=== PATIENT | female | born 1975 | race Caucasian/White ===

== ENCOUNTER 2023-12-16 15:26 | Observation (INO) | payer OTHER ==
[~2023-12-16 15:26] MED LIST: Iopamidol-370 76% 500 ML MDV (1 ML CHARGE) ONE
[2023-12-16 16:19] LABS: #Basophils 0.06 10x3/uL (0.0-0.2); #Eosinphils Less than 0.03 10x3/uL (0.0-0.7); %Basophils 0.4 % (0.0-1.0); %Eosinophils 0.1 % (0.0-10.0); %Lymphocytes 12.5 % (21.0-51.0); %Monocytes 8.7 % (0.0-10.0); %Neutrophils 76.6 % (42.0-75.0); Hematocrit 44.6 % (36.0-47.0); Hemoglobin 15.2 g/dL (12.0-16.0); Mean Corpuscular HGB CONC 34.1 g/dL (32.0-36.0); Mean Corpuscular Hemoglobin 30.2 pg (27.0-31.0); Mean Corpuscular Volume 88.7 fL (78.0-98.0); Mean Platelet Volume 9.3 fL (7.4-10.4); Platelet Count 579 10x3/uL (130-400); RBC Distribution Width 13.3 % (11.5-14.5); Red Blood Cell (RBC) Count 5.03 mill/uL (4.20-5.40)
[2023-12-16 16:23] LABS: BHCG - Serum Negative (NEGATIVE); Pregs Control Background? CLEAR/WHITE (CLR/WHITE); Pregs Control Bar Appear? YES (CONTROL BAR)
[2023-12-16 16:27] LABS: ALT (SGPT) 17 U/L (8-55); AST (SGOT) 17 U/L (5-34); Albumin 4.3 g/dL (3.5-5.0); Alkaline Phosphatase 110 U/L (40-110); Anion Gap 17 mmol/L (10-20); BUN (Urea Nitrogen) 21 mg/dL (7.0-18.7); Bilirubin, Total 0.8 mg/dL (0.2-1.2); Calc. Creatinine Clearance 0 mL/min (70-130); Calcium 9.8 mg/dL (7.8-10.44); Carbon Dioxide 20 mmol/L (22-29); Chloride 102 mmol/L (98-107); Estimated GFR 65; Globulin 3.9 g/dL (2.4-3.5); Glucose 321 mg/dL (70-105); Potassium 3.6 mmol/L (3.5-5.1); Protein, Total 8.2 g/dL (6.0-8.3); Sodium 135 mmol/L (136-145)
[2023-12-16 18:08] LABS: Bacteria/HPF None Seen HPF (None Seen); Bilirubin Negative (Negative); Blood, Urine 2+ (Negative); CAUTI Indications for Culture Dysuria,urgency,freq; Clarity Turbid (Clear); Glucose, Urine (Dipstick) Greater than 1000 mg/dL (Negative); Ketone, Urine 80 mg/dL (Negative); Leukocyte Negative Leu/uL (Negative); Nitrite Negative (Negative); Protein, Urine (Dipstick) 300 mg/dL (Neg-Trace); Specific Gravity, Urine 1.039 (1.002-1.036)
[2023-12-16 18:11] LABS: Urine Culture Reflex No No
[2023-12-16] MEDS ORDERED: Ketorolac Tromethamine 30 MG (1 mL) VIAL ONE (19:16)
[2023-12-16] MEDS ORDERED: Pantoprazole 40 MG VIAL ONE (20:41)
[2023-12-16] MEDS ORDERED: Pantoprazole 80 MG, Admixture Fee 1 EACH in Sodium Chloride 0.9% 100 ML IVPB SCH (20:45)
[2023-12-16] MEDS ORDERED: Dextrose 50% Abboject 50 ML SYRINGE SLOW IVP PRN (22:06)
[2023-12-16] MEDS ORDERED: Ondansetron PF 4 MG/2 ML Vial IVP PRN (22:06)
[2023-12-16] MEDS ORDERED: Glucagon 1 MG/ML KIT IM PRN (22:06)
[2023-12-16] MEDS ORDERED: Dextrose 5% in Water 1,000 ML IV PRN (22:06)
[2023-12-16] MEDS ORDERED: Insulin Lispro 100 UNIT/ML 10 ML VIAL SC PRN ×2 (22:11)
[2023-12-16] MEDS ORDERED: Lactulose 20 GM (30 mL) UDCUP PO SCH (22:30)
[2023-12-16] MEDS ORDERED: Polyethylene Glycol 3350 17 GM Packet PO SCH (22:30)
[2023-12-16] MEDS ORDERED: Sodium Chloride 0.9% 1,000 ML IV SCH (22:30)
[2023-12-16 22:47] LABS: Amphetamine Detected (NotDetected); Barbiturates Screen Not Detected (NotDetected); Benzodiazepine Screen Not Detected (NotDetected); Cocaine Metabolite Screen Not Detected (NotDetected); Methadone Not Detected (NotDetected); Methamphetamine Detected (NotDetected); Opiate Screen Not Detected (NotDetected); Oxycodone Screen Not Detected (NotDetected); Phencyclidine (PCP) Not Detected (NotDetected); THC/Cannabinoid Screen Detected (NotDetected); Tricyclic Screen Not Detected (NotDetected)
[2023-12-16 23:28] LABS: Hemoglobin A1c 8.3 % (4.0-6.0)
[2023-12-16 23:54] LABS: Acetaminophen Less than 10 mcg/mL (Less than 10); Cardiac Risk 5.4 (Less than 4.5); Cholesterol 184 mg/dl (< 200 Desired); HDL Cholesterol 34 mg/dL (>60 Neg Risk); LDL Cholesterol, Calculated 117 mg/dL; Salicylate Less than 8.0 mg/dL (Less than 8.0); Triglycerides 164 mg/dL (Less than 150)
[2023-12-17] LABS: Alcohol Less than 10.0 mg/dL (Less than 10)
[2023-12-17 01:21] VITALS: BMI 31.6
[2023-12-17] MEDS: Sucralfate 1 GM/10 ML UDCUP PO PRN (02:19)
[2023-12-17] MEDS: Bisacodyl 10 MG SUPP PR SCH ×2 (02:19→07:31)
[2023-12-17] MEDS: risperiDONE 1 MG TAB PO SCH ×2 (02:19→21:36)
[2023-12-17] MEDS: Diazepam 10 MG/2 ML SYRINGE IVP SCH (02:19)
[2023-12-17] MEDS: Lactated Ringer's 1,000 ML IV SCH ×3 (02:36→17:34)
[2023-12-17 04:13] LABS: #Basophils 0.09 10x3/uL (0.0-0.2); %Basophils 0.6 % (0.0-1.0); %Eosinophils 1.3 % (0.0-10.0); %Lymphocytes 22.4 % (21.0-51.0); %Monocytes 10.1 % (0.0-10.0); %Neutrophils 63.8 % (42.0-75.0); Hemoglobin 13.9 g/dL (12.0-16.0); Mean Corpuscular HGB CONC 33.1 g/dL (32.0-36.0); Mean Corpuscular Hemoglobin 30.4 pg (27.0-31.0); Mean Corpuscular Volume 91.9 fL (78.0-98.0); Mean Platelet Volume 9.3 fL (7.4-10.4); Platelet Count 482 10x3/uL (130-400); RBC Distribution Width 13.4 % (11.5-14.5); Red Blood Cell (RBC) Count 4.57 mill/uL (4.20-5.40)
[2023-12-17 04:33] LABS: ALT (SGPT) 17 U/L (8-55); AST (SGOT) 22 U/L (5-34); Albumin 3.9 g/dL (3.5-5.0); Alkaline Phosphatase 101 U/L (40-110); Anion Gap 18 mmol/L (10-20); BUN (Urea Nitrogen) 16 mg/dL (7.0-18.7); Bilirubin, Total 0.8 mg/dL (0.2-1.2); Calc. Creatinine Clearance 124 mL/min (70-130); Calcium 9.1 mg/dL (7.8-10.44); Carbon Dioxide 14 mmol/L (22-29); Chloride 108 mmol/L (98-107); Estimated GFR 108; Globulin 3.5 g/dL (2.4-3.5); Glucose 183 mg/dL (70-105); Potassium 3.6 mmol/L (3.5-5.1); Protein, Total 7.4 g/dL (6.0-8.3); Sodium 136 mmol/L (136-145)
[2023-12-17] MEDS ORDERED: Lithium Carbonate 150 MG CAP PO SCH (09:00)
[2023-12-17] MEDS ORDERED: Lactulose 20 GM (30 mL) UDCUP PO SCH (09:00)
[2023-12-17] MEDS ORDERED: Lidocaine 2% PF 100 mg/5 ml Syringe ONE (10:04)
[2023-12-17] MEDS ORDERED: Midazolam HCl 2 mg/2 ml Vial ONE (10:04)
[2023-12-17] MEDS ORDERED: PROPOFOL 40 ML ONE (10:04)
[2023-12-17] MEDS ORDERED: Dexmedetomidine 200 MCG/2 ML VIAL ONE (10:27)
[2023-12-17] MEDS: GoLYTELY 4,000 ml Bottle PO SCH (11:28)
[2023-12-17] MEDS: Lisinopril 20 MG TAB PO SCH (11:28)
[2023-12-17] MEDS: Nicotine 21 MG PATCH TD SCH (13:46)
[2023-12-17] MEDS: Acetaminophen 325 MG TAB PO PRN (13:58)
[2023-12-17] MEDS: Dicyclomine 10 MG CAP PO SCH (21:36)
[2023-12-17] MEDS: Pantoprazole 40 MG VIAL IVP SCH (21:36)
[2023-12-17] MEDS ORDERED: Sucralfate 1 GM/10 ML UDCUP PO PRN (23:26)
[2023-12-18] MEDS: Lidocaine 4% Patch TD SCH (00:26)
[2023-12-18 04:17] LABS: #Basophils 0.05 10x3/uL (0.0-0.2); %Basophils 0.5 % (0.0-1.0); %Eosinophils 2.8 % (0.0-10.0); %Lymphocytes 31.4 % (21.0-51.0); %Monocytes 9.3 % (0.0-10.0); %Neutrophils 54.8 % (42.0-75.0); Hematocrit 33.4 % (36.0-47.0); Hemoglobin 11.4 g/dL (12.0-16.0); Mean Corpuscular HGB CONC 34.1 g/dL (32.0-36.0); Mean Corpuscular Hemoglobin 30.6 pg (27.0-31.0); Mean Corpuscular Volume 89.5 fL (78.0-98.0); Mean Platelet Volume 9.4 fL (7.4-10.4); Platelet Count 462 10x3/uL (130-400); RBC Distribution Width 13.2 % (11.5-14.5); Red Blood Cell (RBC) Count 3.73 mill/uL (4.20-5.40)
[2023-12-18 04:42] LABS: ALT (SGPT) 16 U/L (8-55); AST (SGOT) 18 U/L (5-34); Albumin 3.2 g/dL (3.5-5.0); Alkaline Phosphatase 72 U/L (40-110); Anion Gap 14 mmol/L (10-20); BUN (Urea Nitrogen) 8 mg/dL (7.0-18.7); Bilirubin, Total 0.6 mg/dL (0.2-1.2); Calc. Creatinine Clearance 139 mL/min (70-130); Calcium 8.7 mg/dL (7.8-10.44); Carbon Dioxide 22 mmol/L (22-29); Chloride 107 mmol/L (98-107); Estimated GFR 111; Globulin 2.6 g/dL (2.4-3.5); Glucose 129 mg/dL (70-105); Potassium 3.4 mmol/L (3.5-5.1); Protein, Total 5.8 g/dL (6.0-8.3); Sodium 140 mmol/L (136-145)
[2023-12-18] MEDS: Diazepam 2 MG TAB PO SCH (06:13)
[2023-12-18] MEDS: Potassium Chloride 20 MEQ TAB PO SCH (08:38)
[2023-12-18 12:55] VITALS: TEMP 98.3
[2023-12-18] MEDS: Transdermal Patch Removal TOP SCH (14:04)
[2023-12-18 18:57] VITALS: BP 148/95
== END 2023-12-18 19:23 | disposition home or self-care (01) ==
LOC: ERS 15:26 → ERHOLD 20:55 → 2SE 12-17 01:01
PROVIDERS: ADMIT Student in an Organized Health Care Education/Training Program; ATTEND Student in an Organized Health Care Education/Training Program
PROC: 0D998ZX Drainage of Duodenum, Via Natural or Artificial Opening Endoscopic, Diagnostic (ICD-10-PCS; principal; 2023-12-18)
DX: K26.3 Acute duodenal ulcer without hemorrhage or perforation (principal); K29.80 Duodenitis without bleeding; K20.90 Esophagitis, unspecified without bleeding; K59.09 Other constipation; I10 Essential (primary) hypertension; E11.9 Type 2 diabetes mellitus without complications; E78.5 Hyperlipidemia, unspecified; F32.9 Major depressive disorder, single episode, unspecified; Z79.899 Other long term (current) drug therapy
CPT/HCPCS: 36415; 36416; 74177; 80053; 80061; 80306; 80307; 81001; 83036; 83605; 83690; 84443; 84703; 85025; 87040; 88305; 93005; 93010; 96365; 96366; 96375; 96376; G0378; J1885; J2001; J2250; J2470; J2704; J3360; J7120; Q9967

== ENCOUNTER 2025-02-06 16:10 | Outpatient (CLI) | payer MEDICAID, OTHER | END 2025-02-06 16:11 | disposition home or self-care (01) | LOC: BICRAD 16:10 | PROVIDERS: ATTEND Family Medicine | DX: M54.42 Lumbago with sciatica, left side (principal); M54.6 Pain in thoracic spine; G89.29 Other chronic pain; S33.140A Subluxation of L4/L5 lumbar vertebra, initial encounter | CPT/HCPCS: 71046; 72100; 72170 ==